=== PATIENT | female | born 1990 | race Two or more races ===

== ENCOUNTER 2025-04-09 16:28 | Emergency (ER) | payer MEDICAID, SELFPAY ==
[2025-04-09 16:29] VITALS: BMI 34.4
[2025-04-09 16:35] VITALS: BP 161/95; PULSE 95; RESP 18; TEMP 37.6; O2SAT 96
--- NOTE | 2025-04-09 16:42 | PD.EDRME ---
Rapid Medical Screening Exam RME Arrival date/time: 04/09/25 16:28 35-year-old female with a history of iron deficiency anemia presents to the emergency room with a chief complaint of weakness and fatigue. Patient states she was sent over by her primary care provider for hemoglobin level of 6. I have greeted and performed a focused initial assessment of this patient. A comprehensive ED assessment and evaluation of the patient, analysis of all test results, and completion of the medical decision making process will be conducted by additional ED providers. Chief Complaint: General Adult/Misc Complain Time Seen by Provider: 04/09/25 16:35 Vital signs: Vital Signs Temperature 99.6 F 04/09/25 16:35 Pulse Rate 95 04/09/25 16:35 Respiratory Rate 18 04/09/25 16:35 Blood Pressure 161/95 H 04/09/25 16:35 Pulse Oximetry (%) 96 04/09/25 16:35 Oxygen Delivery Method Room Air 04/09/25 16:35 Vital signs reviewed by provider: Yes
[2025-04-09 17:09] LABS: Basophils # (Auto) 0.1 Thou/mm3 (0.0-0.2); Basophils % (Auto) 1 % (0-2.5); Eosinophils # (Auto) 0.6 Thou/mm3 (0.0-0.5); Eosinophils % (Auto) 5 % (0-10); Immature Granulocytes % (Auto) 0 % (0-0); Immature Granulocytes Auto 0.05 Thou/mm3 (0.00-0.00); Lymphocytes # (Auto) 2.1 Thou/mm3 (1.0-4.8); Lymphocytes % (Auto) 18 % (10-50); Mean Corpuscular HGB Conc 26.8 g/dl (31.0-37.0); Mean Corpuscular Hemoglobin 14.5 pg (25.0-35.0); Mean Corpuscular Volume 54 fL (80-100); Monocytes # (Auto) 0.8 Thou/mm3 (0.0-0.8); Monocytes % (Auto) 6 % (0-12); Neutrophils # (Auto) 8.3 Thou/mm3 (1.8-7.7); Neutrophils % (Auto) 70 % (37-80); Nucleated Red Blood Cell % 0 /100 WBC (0); Platelet Count 380 Thou/mm3 (140-440); RDW Standard Deviation 39.4 fL (36.4-46.3); Red Blood Count 4.63 Miln/mm3 (4.00-5.20)
[2025-04-09 17:14] LABS: Partial Thromboplastin Time 23.9 Seconds (22.0-36.0); Prothrombin Time 10.8 Seconds (9.0-12.2)
[2025-04-09 17:23] LABS: Hemoglobin 6.7 g/dL (12.0-16.0)
[2025-04-09 17:30] LABS: Alanine Aminotransferase 8 U/L (10-49); Albumin, Serum 4.5 gm/dL (3.5-5.0); Albumin/Globulin Ratio 1.5 (1.2-2.2); Alkaline Phosphatase 103 U/L (46-116); Anion Gap 9 (7-16); Aspartate Amino Transferase 17 U/L (0-34); BUN/Creatinine Ratio 14 Ratio (12-20); Bilirubin,Total 0.3 mg/dL (0.3-1.2); Blood Urea Nitrogen 14 mg/dL (9-23); Calcium 8.7 mg/dL (8.3-10.6); Calcium (Corrected) 8.7 mg/dL (8.5-10.1); Carbon Dioxide 24.9 mMol/L (20.0-31.0); Chloride 106 mMol/L (98-107); Estimated Creatinine Clearance 95.3 mL/min (>60); Glucose 125 mg/dL (74-106); Osmolality,Calculated 280 (275-295); Potassium 4.1 mMol/L (3.4-5.1); Sodium 140 mMol/L (136-145); Total Protein 7.5 gm/dL (5.7-8.2); eGFR > 60 See Note
--- NOTE | 2025-04-09 18:16 | PD.EDADULT ---
ED General RME/HPI General Chief complaint: General Adult/Misc Complain Stated complaint: SENT BY PMD FOR LOW HGB, C/O FATIGUE, SOB, DIZZY Time Seen by Provider: 04/09/25 16:35 Arrival date/time: 04/09/25 16:28 RME / HPI RME / HPI narrative: 35-year-old female with a history of iron deficiency anemia presents to the emergency room with a chief complaint of weakness and fatigue. Patient states she was sent over by her primary care provider for hemoglobin level of 6. Patient denies any vomiting blood denies any blood in the stool. Patient also denies any normal menstruation. Patient told me that she has been anemic post gastric surgery. 5 years ago. Related Data Home Medications ?Medication ?Instructions ?Recorded ?Confirmed multivitamin 1 tab PO QAM 07/18/20 01/12/22 [id number] 3-fat com #1 27 1 cap PO QDAY 01/12/22 01/12/22 mg-1 mg-300 mg capsule ferrous sulfate 325 mg (65 mg 325 mg PO QDAY 01/12/22 01/12/22 iron) tablet (Iron (ferrous sulfate)) sertraline 50 mg tablet 50 mg PO QDAY 08/16/22 08/16/22 Previous Rx's ?Medication ?Instructions ?Recorded docusate sodium 100 mg capsule 100 mg PO BID #60 caps 08/17/22 (Colace) ibuprofen 600 mg tablet 600 mg PO Q6H PRN pain #90 tabs 08/17/22 lanolin 50 % topical ointment 1 applic topical TID PRN skin 08/17/22 irritation #15 tubes ondansetron 4 mg disintegrating 4 mg PO Q6H PRN nausea and 12/02/22 tablet vomiting #8 tabs Allergies Allergy/AdvReac Type Severity Reaction Status Date / Time No Known Allergies Allergy Unknown Verified 04/09/25 16:30 Review of Systems Review of Systems Narrative Review of Systems: Review of system reviewed and within normal limits except mentioned in HPI ED Exam Narrative Physical exam: VITAL SIGNS: Reviewed. GENERAL APPEARANCE: Alert and interactive, follows commands, no acute distress, HEAD AND FACE: Non-traumatic. ENT: PERRL, pale conjunctiva eyelid no trauma, Mucous membrane moist. NECK: Supple, nontender, no nuchal rigidity. CHEST: No tenderness, no crepitus, no paradoxical movement, no retractions. LUNGS: Clear, well ventilated, symmetric, no rales, no wheezing, no ronchi, no stridor, good breath sounds bilaterally. HEART: Regular rate, regular rhythm, no murmur, no gallops. ABDOMEN: Soft, positive bowel sounds, nondistended, no guarding, nontender, no rebound, no masses, RECTAL: Deferred. GENITAL: Deferred. NEUROLOGICAL: Gross motor function intact sensory function intact, Appropriate for age. MUSCULOSKELETAL: low back nontender, full range of motion. EXTREMITIES: Nontender, full range of motion. SKIN: Color pale, dry, no rash, no lacerations, no abrasions, no contusions. LYMPHATICS: Deferred. Course Quality Measures none Orders Category Date Time Status IV [Insert IV] NOW Care 04/09/25 20:53 Active Transfuse,blood/blood products ONCE Care 04/09/25 17:33 Active CBC Stat Lab 04/09/25 16:49 Completed CMP [Comprehensive Metabolic Panel] Stat Lab 04/09/25 16:49 Completed PT [Prothrombin Time with INR] Stat Lab 04/09/25 16:49 Completed PTT [Partial Thromboplastin Time] Stat Lab 04/09/25 16:49 Completed Type and Screen Stat Lab 04/09/25 16:49 Results prbc [Red Blood Cells] Stat Lab 04/09/25 16:49 Results Vital Signs Vital signs: Vital Signs Temperature 99.6 F 04/09/25 16:35 Pulse Rate 95 04/09/25 16:35 Respiratory Rate 18 04/09/25 16:35 Blood Pressure 161/95 H 04/09/25 16:35 Pulse Oximetry (%) 96 04/09/25 16:35 Oxygen Delivery Method Room Air 04/09/25 16:35 Discharge Plan Plan Patient Disposition: HOME (Self Care) Discharge Disposition comment: Stable Prescriptions/Referrals Prescriptions/Med Rec: No Action ferrous sulfate [Iron (ferrous sulfate)] 325 mg (65 mg iron) Tablet 325 mg PO QDAY Pre-Leila Multivitamins/Minerals 27-1-300 mg Capsule 1 cap PO QDAY multivitamin Tablet 1 tab PO QAM sertraline 50 mg tablet 50 mg PO QDAY Patient Comments: TAKE 1 TABLET BY MOUTH EVERY DAY docusate sodium [Colace] 100 mg capsule 100 mg PO BID Qty: 60 0RF ibuprofen 600 mg tablet 600 mg PO Q6H PRN (Reason: pain) Qty: 90 0RF lanolin 50 % ointment 1 applic topical TID PRN (Reason: skin irritation) Qty: 15 0RF ondansetron 4 mg tablet,disintegrating 4 mg PO Q6H PRN (Reason: nausea and vomiting) Qty: 8 0RF Referrals: Tiffanie Harman PA-C [Primary Care Provider] - In 1 week Problem List Clinical Impression: Anemia Patient/Caregiver Discharge Instructions Discharge Activity: activity as tolerated Education Materials: Anemia Additional Instructions: Thank you for the opportunity for serving you today. You are stable for discharged . You are advised to: Follow-up with your PCP in 1 to 2 days Return to ED for worsening of symptoms Print Language: Mongolian Stand Alone Forms: Deidre Award Info., Patient Portal Info Letter LINDA/DIXON Supervising Physician ANGEL Supervising Physician: MD portia MDM Narrative MDM hospital course (for use when minimal MDM required): 35-year-old female with a history of iron deficiency anemia presents to the emergency room with a chief complaint of weakness and fatigue. Patient states she was sent over by her primary care provider for hemoglobin level of 6. Patient denies any vomiting blood denies any blood in the stool. Patient also denies any normal menstruation. Patient told me that she has been anemic post gastric surgery. 5 years ago. Patient hemoglobin was noted to be 6.7 hematocrit of 25. The rest of labs unremarkable. Patient received 2 units of packed RBC with no complication noted. Diagnosis Differential Diagnosis ED Complaint MDM: Anemia, iron deficiency anemia, nutritional anemia Diagnoses ruled out and/or further discussions: Anemia
[2025-04-09 20:42] VITALS: BP 134/103; PULSE 73; RESP 22; TEMP 36.8; O2SAT 100
[2025-04-09 21:07] VITALS: BP 150/96; PULSE 74; RESP 18; TEMP 36.8; O2SAT 100
[2025-04-09 21:34] VITALS: BP 160/103; PULSE 71; RESP 18; TEMP 36.9; O2SAT 100
[2025-04-09 21:49] VITALS: BP 144/89; PULSE 75; RESP 18; TEMP 36.9
[2025-04-09 23:59] VITALS: BP 149/94; PULSE 78; RESP 20; TEMP 37.1; O2SAT 99
[2025-04-10 00:08] VITALS: BP 152/94; PULSE 73; RESP 19; TEMP 36.9; O2SAT 98
[2025-04-10 00:24] VITALS: BP 151/94; PULSE 77; RESP 20; TEMP 37; O2SAT 100
[2025-04-10] MEDS: ACETAMINOPHEN 500 MG TABLET 1000 MG PO (00:36)
[2025-04-10 00:39] VITALS: BP 147/97; PULSE 78; RESP 18; TEMP 37.1; O2SAT 99
[2025-04-10 02:55] VITALS: BP 157/107; PULSE 70; RESP 18; TEMP 36.9; O2SAT 100
== END 2025-04-10 02:58 | disposition home or self-care (01) ==
PROVIDERS: Nurse Practitioner Family; Emergency Provider Emergency Medicine; PCP Physician Assistant
DX: D64.9 Anemia, unspecified (principal)
CPT/HCPCS: 36415; 36430; 80053; 85025; 85610; 85730; 86850; 86900; 86901; 86923; 99285; P9016; A9270